=== PATIENT | male | born 1950 | race African-American/Black ===

== ENCOUNTER 2018-01-11 16:20 | Emergency (ER) | payer MEDICARE, MEDICAID ==
[~2018-01-11] VITALS: Ht 193 cm; Wt 99.8 kg
[2018-01-11] MEDS ORDERED: Vancomycin 1 GM in NS 275 ML IV ONE (16:30)
[2018-01-11 16:36] VITALS: BP 171/60
[2018-01-11 17:26] LABS: EOSINOPHILS % (AUTO) 0.2 % (0.0-3.0); HEMATOCRIT 30.9 % (42.0-52.0); HEMOGLOBIN 9.7 G/DL (14.2-18.0); LYMPHOCYTES % (AUTO) 9.1 % (20.0-45.0); MEAN CORPUSCULAR VOLUME 90 FL (80-99); MONOCYTES % (AUTO) 8.6 % (1.0-10.0); NEUTROPHILS % (AUTO) 81.1 % (45.0-75.0); PLATELET COUNT 338 K/UL (150-450); RED BLOOD COUNT 3.41 M/UL (4.70-6.10); RED CELL DISTRIBUTION WIDTH 16.6 % (11.6-14.8); WHITE BLOOD COUNT 10.1 K/UL (4.8-10.8)
[2018-01-11] MEDS ORDERED: Morphine Sulfate 4mg/ml Inj (IV USE ONLY) IVP ONE ×2 (17:30→22:15)
[2018-01-11 17:41] LABS: ALANINE AMINOTRANSFERASE 16 U/L (12-78); ALBUMIN 3.1 G/DL (3.4-5.0); ALBUMIN/GLOBULIN RATIO 0.6 (1.0-2.7); ALKALINE PHOSPHATASE 61 U/L (46-116); ANION GAP 19 mmol/L (5-15); ASPARTATE AMINO TRANSFERASE 20 U/L (15-37); BILIRUBIN,TOTAL 0.4 MG/DL (0.2-1.0); BLOOD UREA NITROGEN 94 mg/dL (7-18); CALCIUM 10.6 MG/DL (8.5-10.1); CARBON DIOXIDE 23 MMOL/L (21-32); CHLORIDE 103 MMOL/L (98-107); CREATINE KINASE 387 U/L (26-308); CREATININE 19.9 MG/DL (0.55-1.30); SODIUM 143 MMOL/L (136-145)
[2018-01-11 17:44] LABS: POTASSIUM 6.4 MMOL/L (3.5-5.1)
[2018-01-11] MEDS ORDERED: Sodium Polystyrene Sulfonate 15gm Powder ORAL ONE (18:00)
[2018-01-11] MEDS ORDERED: Insulin Human Regular 100units/ml 3ml IV ONE (18:00)
[2018-01-11] MEDS ORDERED: Albuterol ud Inhalation HHN ONE (18:00)
[2018-01-11 18:51] VITALS: BP 200/105
[2018-01-11] MEDS ORDERED: BACTRIM 400-801 EACH ORAL (19:23)
[2018-01-11] MEDS ORDERED: HYDRALAZINE HCL50 MG ORAL (19:23)
[2018-01-11] MEDS ORDERED: NEPHROVITE1 TAB ORAL (19:23)
[2018-01-11] MEDS ORDERED: ATENOLOL50 MG ORAL (19:23)
[2018-01-11] MEDS ORDERED: SENSIPAR30 MG ORAL (19:23)
[2018-01-11] MEDS ORDERED: AMLODIPINE BESY10 MG ORAL (19:23)
[2018-01-11] MEDS ORDERED: PERCOCET 10-321 EACH ORAL (19:23)
[2018-01-11] MEDS ORDERED: CEPHALEXIN500 M1 ORAL (19:23)
[2018-01-11] MEDS ORDERED: LIPITOR10 MG ORAL (19:23)
[2018-01-11] MEDS ORDERED: ALLOPURINOL100 M1 ORAL (19:23)
[2018-01-11] MEDS ORDERED: HYDROMORPHONE HC2 M1 PO (19:23)
[2018-01-11] MEDS ORDERED: PLAVIX75 MG ORAL (19:23)
[2018-01-11] MEDS ORDERED: MEGESTROL ACETA20 M1 PO (19:23)
[2018-01-11] MEDS ORDERED: ASPIR 8181 MG ORAL (19:23)
[2018-01-11] MEDS ORDERED: AMLODIPINE BESYL5 MG ORAL (19:23)
[2018-01-11 20:00] VITALS: BP 174/72
[2018-01-11 21:00] VITALS: BP 179/74
--- NOTE | 2018-01-11 21:58 | Emergency Room Report ---
History of Present Illness General Chief Complaint: Pain Source: Patient Present Illness HPI This patient had a partial foot amputation 2 weeks ago. He underwent this amputation at [facility]. He complains of severe foot pain. He states that his pain is so severe that he has not gone to dialysis for the past 2 sessions. He denies fever or chills. He denies nausea or vomiting. He has no other complaints. Allergies: Coded Allergies: No Known Allergies (Unverified , 09/25/15) Patient History Past Medical History: see triage record, HTN, renal disease, dialysis, other - Parkinsons, HLP, meningioma, OCD, CAD, Hx of PE Past Surgical History: other - L. partial foot amputation Social History: Denies: smoking, alcohol use, drug use Reviewed Nursing Documentation: PMH: Agreed; PSxH: Agreed Nursing Documentation-PMH Hx Hypertension: Yes Hx Diabetes: Yes Hx Dialysis: Yes - ESRD,[id number] Review of Systems All Other Systems: negative except mentioned in HPI Physical Exam Vital Signs Date Time Temp Pulse Resp B/P (MAP) Pulse Ox O2 Delivery O2 Flow Rate FiO2 01/11/18 16:13 98.4 77 20 185/78 99 Room Air 98.4 01/11/18 18:40 21 Sp02 EP Interpretation: reviewed, normal General Appearance: no apparent distress, alert, GCS 15, non-toxic Head: normocephalic, atraumatic Eyes: bilateral eye normal inspection, bilateral eye PERRL ENT: hearing grossly normal, normal pharynx, no angioedema, normal voice Neck: full range of motion, supple/symm/no masses Respiratory: chest non-tender, lungs clear, normal breath sounds, no respiratory distress, no retraction, no accessory muscle use, speaking full sentences Cardiovascular #1: regular rate, rhythm, no edema Gastrointestinal: normal bowel sounds, non tender, soft, non-distended, no guarding, no rebound Rectal: deferred Musculoskeletal: other - L. foot with dark colored skin and opening of the sutures/wound at the amputation site. Mild erythema. Neurologic: alert, oriented x3, responsive, motor strength/tone normal, sensory intact, speech normal Psychiatric: judgement/insight normal, memory normal, mood/affect normal, no suicidal/homicidal ideation Skin: normal color, no rash, warm/dry, well hydrated Lymphatic: no adenopathy Medical Decision Making Diagnostic Impression: Primary Impression: Wound dehiscence Additional Impressions: Hyperkalemia ESRD needing dialysis Uncontrolled pain ER Course This patient has wound findings concerning for dehiscence and possible infection. The patient was given broad-spectrum antibiotics. He also had uncontrolled pain in the foot. He missed dialysis twice so he had hyperkalemia which was treated with insulin, glucose, albuterol and Kayexalate. This did improve his potassium. He is transferred to [facility] at the request for further evaluation of his foot wound and for dialysis. This patient is critically ill. This patient required complex medical decision- making, aggressive intervention, extensive laboratory workup and monitoring. Critical care time: 40 minutes. Laboratory Tests Test 01/11/18 16:47 01/11/18 19:45 White Blood Count 10.1 K/UL (4.8-10.8) Red Blood Count 3.41 M/UL (4.70-6.10) L Hemoglobin 9.7 G/DL (14.2-18.0) L Hematocrit 30.9 % (42.0-52.0) L Mean Corpuscular Volume 90 FL (80-99) Mean Corpuscular Hemoglobin 28.3 PG (27.0-31.0) Mean Corpuscular Hemoglobin Concent 31.3 G/DL (32.0-36.0) L Red Cell Distribution Width 16.6 % (11.6-14.8) H Platelet Count 338 K/UL (150-450) Mean Platelet Volume 6.8 FL (6.5-10.1) Neutrophils (%) (Auto) 81.1 % (45.0-75.0) H Lymphocytes (%) (Auto) 9.1 % (20.0-45.0) L Monocytes (%) (Auto) 8.6 % (1.0-10.0) Eosinophils (%) (Auto) 0.2 % (0.0-3.0) Basophils (%) (Auto) 1.0 % (0.0-2.0) Sodium Level 143 MMOL/L (136-145) Potassium Level 6.4 MMOL/L (3.5-5.1) *H 4.6 MMOL/L (3.5-5.1) Chloride Level 103 MMOL/L (98-107) Carbon Dioxide Level 23 MMOL/L (21-32) Anion Gap 19 mmol/L (5-15) H Blood Urea Nitrogen 94 mg/dL (7-18) H Creatinine 19.9 MG/DL (0.55-1.30) H Estimate Glomerular Filtration Rate 2.8 mL/min (>60) Glucose Level 94 MG/DL (74-106) Lactic Acid Level 2.50 mmol/L (0.4-2.0) H 0.80 mmol/L (0.66-2.22) Calcium Level 10.6 MG/DL (8.5-10.1) H Total Bilirubin 0.4 MG/DL (0.2-1.0) Aspartate Amino Transferase (AST) 20 U/L (15-37) Alanine Aminotransferase (ALT) 16 U/L (12-78) Alkaline Phosphatase 61 U/L (46-116) Total Creatine Kinase 387 U/L (26-308) H Total Protein 8.0 G/DL (6.4-8.2) Albumin 3.1 G/DL (3.4-5.0) L Globulin 4.9 g/dL Albumin/Globulin Ratio 0.6 (1.0-2.7) L EKG Diagnostic Results Rate: normal Rhythm: NSR ST Segments: no acute changes Rhythm Strip Diag. Results EP Interpretation: yes Rate: 70's Rhythm: NSR, no PVC's, no ectopy Last Vital Signs Date Time Temp Pulse Resp B/P (MAP) Pulse Ox O2 Delivery O2 Flow Rate FiO2 01/11/18 19:27 187/67 01/11/18 18:51 77 16 100 Room Air 01/11/18 18:51 21 01/11/18 18:10 98.4 Disposition: XFER SHT-TRM HOSP Condition: Serious Referrals: [facility] (PCP) Tracey Washington DO Jan 11, 2018 21:58
[2018-01-11 22:00] VITALS: BP 195/51
[2018-01-11] MEDS ORDERED: oxyCODONE HCL/Acetaminophen 5/325mg ORAL ONE ×2 (22:41→22:45)
[2018-01-11 23:00] VITALS: BP 182/55
[2018-01-12 00:11] VITALS: BP 138/58
[2018-01-12 01:00] VITALS: BP 168/54
[2018-01-12 02:00] VITALS: BP 142/58
[2018-01-12 02:20] VITALS: BP 142/58
--- NOTE | 2018-01-12 15:34 | Cardiology Report ---
APPROVED REPORT EKG Measurement Heart [id number] [place] [id number] Normal sinus rhythm with sinus arrhythmia Normal ECG
== END 2018-01-12 02:20 | disposition short-term general hospital (02) ==
LOC: EDBD 16:20 → EMR 16:50
DX: T81.30XA Disruption of wound, unspecified, initial encounter (principal); Y83.5 Amputation of limb(s) as the cause of abnormal reaction of the patient, or of later complication, without mention of misadventure at the time of the procedure; Y92.9 Unspecified place or not applicable; I12.0 Hypertensive chronic kidney disease with stage 5 chronic kidney disease or end stage renal disease; E11.22 Type 2 diabetes mellitus with diabetic chronic kidney disease; N18.6 End stage renal disease; Z99.2 Dependence on renal dialysis
CPT/HCPCS: 36415; 80053; 82550; 82962; 83605; 84132; 85025; 87040; 93005; 94640; 94664; 96365; 96375; 96376; 99284; J0360; J1815; J2270; J3370; J7050

== ENCOUNTER 2018-02-05 13:45 | Emergency (ER) | payer MEDICARE, MEDICAID ==
[~2018-02-05] VITALS: Ht 177.8 cm; Wt 68.0 kg
[~2018-02-05 13:45] MED LIST: ALLOPURINOL100 M1 ORAL; AMLODIPINE BESY10 MG ORAL; AMLODIPINE BESYL5 MG ORAL; ASPIR 8181 MG ORAL; ATENOLOL50 MG ORAL; BACTRIM 400-801 EACH ORAL; CEPHALEXIN500 M1 ORAL; HYDRALAZINE HCL50 MG ORAL; HYDROMORPHONE HC2 M1 PO; LIPITOR10 MG ORAL; MEGESTROL ACETA20 M1 PO; NEPHROVITE1 TAB ORAL; PERCOCET 10-321 EACH ORAL; PLAVIX75 MG ORAL; SENSIPAR30 MG ORAL
[2018-02-05] MEDS ORDERED: Solu-MEDROL 125mg Inj IVP ONE (14:15)
[2018-02-05 14:25] VITALS: BP 170/104
[2018-02-05] MEDS ORDERED: Acetaminophen 650 MG SUPP RECTAL ONE ×2 (14:30)
[2018-02-05 14:46] LABS: HEMATOCRIT 27.6 % (42.0-52.0); HEMOGLOBIN 8.3 G/DL (14.2-18.0); MEAN CORPUSCULAR VOLUME 87 FL (80-99); PLATELET COUNT 425 K/UL (150-450); RED BLOOD COUNT 3.16 M/UL (4.70-6.10); RED CELL DISTRIBUTION WIDTH 16.7 % (11.6-14.8); WHITE BLOOD COUNT 11.9 K/UL (4.8-10.8)
[2018-02-05 14:59] LABS: BASOPHILS % (AUTO) 0.5 % (0.0-2.0); EOSINOPHILS % (AUTO) 0.8 % (0.0-3.0); LYMPHOCYTES % (AUTO) 4.9 % (20.0-45.0); MONOCYTES % (AUTO) 6.3 % (1.0-10.0); NEUTROPHILS % (AUTO) 87.5 % (45.0-75.0)
[2018-02-05] MEDS: Ipratropium 0.02% Inh Soln 2.5ml UD HHN SCH ×3 (14:59→15:30)
[2018-02-05] MEDS: Albuterol ud Inhalation HHN SCH ×2 (15:00→15:30)
[2018-02-05] MEDS ORDERED: Azithromycin 500 MG in NS 275 ML IV ONE (15:00)
[2018-02-05] MEDS ORDERED: Piperacillin/Tazobactam 3.375 GM in NS 110 ML IVPB ONE (15:00)
[2018-02-05 15:06] LABS: ANION GAP 15 mmol/L (5-15); BLOOD UREA NITROGEN 74 mg/dL (7-18); CALCIUM 11.8 MG/DL (8.5-10.1); CARBON DIOXIDE 24 MMOL/L (21-32); CHLORIDE 100 MMOL/L (98-107); POTASSIUM 5.2 MMOL/L (3.5-5.1); SODIUM 139 MMOL/L (136-145)
[2018-02-05 15:21] LABS: ALANINE AMINOTRANSFERASE 12 U/L (12-78); ALBUMIN 2.3 G/DL (3.4-5.0); ALBUMIN/GLOBULIN RATIO 0.5 (1.0-2.7); ALKALINE PHOSPHATASE 125 U/L (46-116); ASPARTATE AMINO TRANSFERASE 26 U/L (15-37); BILIRUBIN,TOTAL 0.4 MG/DL (0.2-1.0); CKMB < 0.5 NG/ML (0.0-3.6); CREATINE KINASE 212 U/L (26-308)
--- NOTE | 2018-02-05 15:24 | Emergency Room Report ---
History of Present Illness General Chief Complaint: Altered Level of Consciousness Source: Caregiver Present Illness HPI 67-year-old male presents ED for evaluation. Brought in by EMS from intermediate facility for increased altered level of consciousness. Started today. Patient is normally awake alert oriented. Upon arrival patient has a fever. Reduced breath sounds. On nonrebreather from facility. History of COPD. History of end-stage renal disease on dialysis. No reported chest pain. No other aggravating relieving factors. No other associated symptoms Allergies: Coded Allergies: No Known Allergies (Unverified , 09/25/15) Patient History Past Medical History: DM, HTN, renal disease, dialysis Past Surgical History: none Pertinent Family History: none Social History: Denies: smoking, alcohol use, drug use Immunizations: UTD Reviewed Nursing Documentation: PMH: Agreed; PSxH: Agreed Nursing Documentation-PMH Hx Hypertension: Yes Hx Diabetes: Yes Hx Dialysis: Yes - ESRD,[id number]-Dcc Review of Systems All Other Systems: limited Physical Exam Vital Signs Date Time Temp Pulse Resp B/P (MAP) Pulse Ox O2 Delivery O2 Flow Rate FiO2 02/05/18 13:43 96.8 76 18 170/104 97 Simple Mask 96.8 02/05/18 14:39 15.0 100 Sp02 EP Interpretation: reviewed, normal General Appearance: alert, GCS 15, non-toxic, lethargic Head: normocephalic Eyes: bilateral eye normal inspection, bilateral eye PERRL ENT: normal ENT inspection Neck: normal inspection Respiratory: decreased breath sounds, crackles Cardiovascular #1: regular rate, rhythm, no edema Gastrointestinal: normal bowel sounds, non tender, soft, non-distended, no guarding, no rebound Rectal: deferred Genitourinary: no CVA tenderness Musculoskeletal: normal inspection Neurologic: other - lethargic Psychiatric: other - lethargic Skin: normal inspection Lymphatic: normal inspection Medical Decision Making Diagnostic Impression: Primary Impression: Altered level of consciousness Additional Impressions: Fever Qualified Codes: R50.9 - Fever, unspecified ESRD on dialysis Pneumonia Qualified Codes: J18.1 - Lobar pneumonia, unspecified organism COPD (chronic obstructive pulmonary disease) Qualified Codes: J44.9 - Chronic obstructive pulmonary disease, unspecified ER Course Hospital Course 67-year-old male presenting to ED with generalized weakness Differential diagnoses include: Pneumonia, UTI, sepsis, dehydration, IN/ unstable angina Clinical course Patient placed on stretcher. On wrapping checker with stable vitals are ED course. After initial history and physical, I ordered labs, IV fluids, EKG, chest x-ray, blood cultures, UA. ABG shows no acidosis, normal bicarbonate and CO2 given rectal tylenol Some crackles noted. Reduced breath sounds. Breathing treatments given with improved breath sounds Labs - BUN/Cr elevated, noted leukocytosis, troponins 0.115, UA grossly positive for UTI EKG - NSR, no acute ischemic changes interpreted by me CXR - ?LLL infiltrate Abx given. Because of insurance patient will be transferred to [place] I feel this is a highly complex case requiring extensive working including EKG/ Rhythm strip, Xray/CT/US, Blood/urine lab work, repeat exams while in ED, and administration of strong opiates/narcotics for pain control, admission to hospital or close patient follow up. Diagnosis - ALOC, fever, ESRD on dialysis, pneumonia, COPD Patient transferred in serious condition Labs Test 02/05/18 14:00 02/05/18 14:08 02/05/18 15:40 White Blood Count 11.9 K/UL (4.8-10.8) Red Blood Count 3.16 M/UL (4.70-6.10) Hemoglobin 8.3 G/DL (14.2-18.0) Hematocrit 27.6 % (42.0-52.0) Mean Corpuscular Volume 87 FL (80-99) Mean Corpuscular Hemoglobin 26.2 PG (27.0-31.0) Mean Corpuscular Hemoglobin Concent 30.0 G/DL (32.0-36.0) Red Cell Distribution Width 16.7 % (11.6-14.8) Platelet Count 425 K/UL (150-450) Mean Platelet Volume 6.6 FL (6.5-10.1) Neutrophils (%) (Auto) 87.5 % (45.0-75.0) Lymphocytes (%) (Auto) 4.9 % (20.0-45.0) Monocytes (%) (Auto) 6.3 % (1.0-10.0) Eosinophils (%) (Auto) 0.8 % (0.0-3.0) Basophils (%) (Auto) 0.5 % (0.0-2.0) Sodium Level 139 MMOL/L (136-145) Potassium Level 5.2 MMOL/L (3.5-5.1) Chloride Level 100 MMOL/L (98-107) Carbon Dioxide Level 24 MMOL/L (21-32) Anion Gap 15 mmol/L (5-15) Blood Urea Nitrogen 74 mg/dL (7-18) Creatinine 10.0 MG/DL (0.55-1.30) Estimat Glomerular Filtration Rate 6.3 mL/min (>60) Glucose Level 160 MG/DL (74-106) Lactic Acid Level 0.90 mmol/L (0.4-2.0) Calcium Level 11.8 MG/DL (8.5-10.1) Total Bilirubin 0.4 MG/DL (0.2-1.0) Aspartate Amino Transf (AST/SGOT) 26 U/L (15-37) Alanine Aminotransferase (ALT/SGPT) 12 U/L (12-78) Alkaline Phosphatase 125 U/L (46-116) Total Creatine Kinase 212 U/L (26-308) Creatine Kinase MB < 0.5 NG/ML (0.0-3.6) Creatine Kinase MB Relative Index 0.2 Troponin I 0.115 ng/mL (0.000-0.056) Pro-B-Type Natriuretic Peptide 72432 pg/mL (0-125) Total Protein 7.1 G/DL (6.4-8.2) Albumin 2.3 G/DL (3.4-5.0) Globulin 4.8 g/dL Albumin/Globulin Ratio 0.5 (1.0-2.7) Arterial Blood pH 7.470 (7.350-7.450) Arterial Blood Partial Pressure CO2 33.8 mmHg (35.0-45.0) Arterial Blood Partial Pressure O2 235.8 mmHg (75.0-100.0) Arterial Blood HCO3 24.1 mmol/L (22.0-26.0) Arterial Blood Oxygen Saturation 99.9 % (92.0-98.0) Arterial Blood Base Excess 0.7 Jose Miguel Test Positive Urine Color Red Urine Appearance Turbid Urine pH 8 (4.5-8.0) Urine Specific [place] 1.010 (1.005-1.035) Urine Protein 4+ (NEGATIVE) Urine Glucose (UA) Negative (NEGATIVE) Urine Ketones Negative (NEGATIVE) Urine Occult Blood 5+ (NEGATIVE) Urine Nitrite Positive (NEGATIVE) Urine Bilirubin Negative (NEGATIVE) Urine Urobilinogen Normal MG/DL (0.0-1.0) Urine Leukocyte Esterase 2+ (NEGATIVE) Urine RBC Tntc /HPF (0 - 0) Urine WBC Tntc /HPF (0 - 0) Urine Squamous Epithelial Cells None /LPF (NONE/OCC) Urine Bacteria Many /HPF (NONE) EKG Diagnostic Results Rate: normal Rhythm: NSR ST Segments: no acute changes ASA given to the pt in ED: No Rhythm Strip Diag. Results EP Interpretation: yes Rhythm: NSR, no PVC's, no ectopy Chest X-Ray Diagnostic Results Chest X-Ray Diagnostic Results : Chest X-Ray Ordered: Yes # of Views/Limited/Complete: 1 View Indication: Shortness of Breath EP Interpretation: Yes Interpretation: no pneumothorax, no acute cardiopulmonary disease, other - LLL effusion Impression: Other - ?PNA Electronically Signed by: Electronically signed by Derian Gann MD Last Vital Signs Date Time Temp Pulse Resp B/P (MAP) Pulse Ox O2 Delivery O2 Flow Rate FiO2 02/05/18 15:01 100 26 100 02/05/18 14:41 102.8 02/05/18 14:39 Non-Rebreather 15.0 100 02/05/18 13:43 170/104 Status: improved Disposition: XFER SHT-TRM HOSP Condition: Serious Referrals: NON PHYSICIAN (PCP) Derian Gann MD Feb 05, 2018 15:24
--- NOTE | 2018-02-05 15:27 | Diagnostic Imaging Report ---
EXAM: XR Chest, 1 View CLINICAL HISTORY: Shortness of breath TECHNIQUE: Frontal view of the chest. COMPARISON: Chest x-ray dated 09/25/15 FINDINGS: Lungs: Mildly increased interstitial markings. Linear density at the periphery of the left upper lung may represent linear atelectasis versus infiltrates. Subsegmental atelectasis in the left lung base. Pleural space: Unremarkable. No pneumothorax. Heart: Unremarkable. No cardiomegaly. Mediastinum: Unremarkable. Bones/joints: Unremarkable. Vasculature: Atherosclerotic calcifications are noted within the aortic arch. Tubes, lines and devices: EKG leads overlie the thorax. Upper abdomen: Mild elevation of the left hemidiaphragm, unchanged. IMPRESSION: 1. Mildly increased interstitial markings. This is likely related to chronic senescent changes although differential diagnosis may also include mild bronchitis or interstitial pneumonitis. 2. Linear density at the periphery of the left upper lung may represent linear atelectasis versus infiltrate. 3. Subsegmental atelectasis in the left lung base. 4. Mild elevation of the left hemidiaphragm, unchanged.
[2018-02-05 16:04] LABS: APPEARANCE,URINE TURBID; BILIRUBIN, URINE NEGATIVE (NEGATIVE); GLUCOSE, URINE (UA) NEGATIVE (NEGATIVE); KETONES,URINE NEGATIVE (NEGATIVE); LEUKOCYTE ESTERASE ,URINE 2+ (NEGATIVE); NITRITE,URINE POSITIVE (NEGATIVE); PH,URINE 8 (4.5-8.0); PROTEIN,URINE 4+ (NEGATIVE); UROBILINOGEN,URINE NORMAL MG/DL (0.0-1.0)
[2018-02-05 16:18] LABS: COLOR,URINE RED
[2018-02-05 16:39] VITALS: BP 108/48
[2018-02-05] MEDS ORDERED: Ketorolac 30mg Inj IV ONE (17:30)
[2018-02-05 17:50] VITALS: BP 108/48
--- NOTE | 2018-02-11 00:57 | Cardiology Report ---
APPROVED REPORT EKG Measurement Heart [id number] Normal sinus rhythm Minimal voltage criteria for LVH, may be normal variant Borderline ECG
== END 2018-02-05 17:50 | disposition short-term general hospital (02) ==
LOC: EDBD 13:45 → EMR 14:35
DX: E11.22 Type 2 diabetes mellitus with diabetic chronic kidney disease (principal); I12.0 Hypertensive chronic kidney disease with stage 5 chronic kidney disease or end stage renal disease; J18.1 Lobar pneumonia, unspecified organism; N39.0 Urinary tract infection, site not specified; Z99.2 Dependence on renal dialysis
CPT/HCPCS: 36415; 36600; 71045; 80053; 81003; 82550; 82553; 82803; 83605; 83880; 84484; 85025; 87040; 87086; 87181; 93005; 94640; 94664; 96365; 96368; 96375; 99285; J0456; J1885; J2543; J2930; J7050